=== PATIENT | female | born 1945 | race Caucasian/White ===

== ENCOUNTER 2021-10-14 20:28 | Emergency (ER) | payer MEDICARE ==
[~2021-10-14 20:28] MED LIST: ASPIRIN325 MG PO; ATENOLOL25 MG PO; COZAAR100 MG PO; LOPRESSOR25 MG PO; PEPCID20 MG PO; PREDNISONE 20MG20 MG PO; PREDNISONE10 MG PO; PROAIR HFA8.5 GM INH; VIBRAMYCIN100 MG PO; ZITHROMAX500 MG PO
[2021-10-14 22:51] LABS: BILIRUBIN NEGATIVE (NEGATIVE); BLOOD NEGATIVE Ery/uL (NEGATIVE); CLARITY CLEAR (CLEAR); COLOR YELLOW (YELLOW); GLUCOSE (U) NORMAL (NORMAL); LEUKOCYTES TRACE Leu/uL (NEGATIVE); NITRITE NEGATIVE (NEGATIVE); PROTEIN NEGATIVE (NEGATIVE); SPECIFIC GRAVITY <=1.005 (1.001-1.030); UROBILINOGEN 0.2 mg/dL (0.2-1.0)
[2021-10-14 22:51] LABS: EOSINOPHIL 8.4 % (0-7); HCT 36.6 % (37.0-47.0); HGB 12.9 g/dl (12.5-16.0); LYMPHOCYTE 10.9 % (15-48); MCH 33.1 pg (25.0-31.0); MCHC 35.2 g/dL (32.0-36.0); MCV 93.8 fL (78.0-100.0); MONOCYTE 18.6 % (0-12); MPV 10.2 fL (6.0-9.5); NEUTROPHIL 60.7 % (41-80); NRBC 0; PLT 170 K/uL (150-400); RDW 13.2 % (11.5-14.0); WBC 4.8 K/uL (4.0-10.5)
[2021-10-14 22:59] LABS: BACTERIA TRACE; SQUAMOUS EPITHELIAL CELLS RARE; URINARY RBC RARE
[2021-10-14 23:09] LABS: ALBUMIN 4.2 g/dL (3.4-5.0); BILIRUBIN - TOTAL 0.5 mg/dL (0.2-1.0); CREATININE 0.8 mg/dL (0.51-0.95); GLOBULIN (CALCULATION) 3.3 g/dL; POTASSIUM 3.5 mmol/L (3.5-5.1); TOTAL PROTEIN 7.5 g/dL (6.4-8.2)
[2021-10-14 23:13] LABS: LACTIC ACID 0.6 mmol/L (0.4-1.9)
[2021-10-14 23:24] LABS: INFLUENZA A NAA NEGATIVE (NEGATIVE)
[2021-10-14 23:26] LABS: CORONAVIRUS 2019 SARS-COV-2 POSITIVE (NEGATIVE)
[2021-10-14] MEDS ORDERED: ONDANSETRON ODT4 MG PO (23:31)
[2021-10-14] MEDS ORDERED: PAXLOVID 300-11 EACH PO (23:31)
[2021-10-14] MEDS ORDERED: ZPAK PO (23:31)
[2021-10-15] MEDS ORDERED: AMOX TR-K CLV1 EAC4 PO (21:09)
== END 2021-10-14 23:45 | disposition home or self-care (01) ==
LOC: FER 20:28
PROVIDERS: Physician Assistant
DX: U07.1 COVID-19 (principal); J44.9 Chronic obstructive pulmonary disease, unspecified; I10 Essential (primary) hypertension; Z79.899 Other long term (current) drug therapy; Z87.891 Personal history of nicotine dependence
CPT/HCPCS: 36415; 80053; 81001; 83605; 84484; 85025; 87088; 93005; J2405; U0002

== ENCOUNTER 2021-10-15 16:57 | Emergency (ER) | payer MEDICARE ==
[~2021-10-15 16:57] MED LIST changes: +ONDANSETRON ODT4 MG PO; +PAXLOVID 300-11 EACH PO; +ZPAK PO
[2021-10-15 18:55] LABS: BASOPHIL 0.5 % (0-2); EOSINOPHIL 0.2 % (0-7); HCT 40.5 % (37.0-47.0); HGB 13.8 g/dl (12.5-16.0); LYMPHOCYTE 6.8 % (15-48); MCH 32.8 pg (25.0-31.0); MCHC 34.1 g/dL (32.0-36.0); MCV 96.2 fL (78.0-100.0); MONOCYTE 9.2 % (0-12); MPV 10.2 fL (6.0-9.5); NRBC 0; PLT 151 K/uL (150-400); RBC 4.21 M/uL (4.20-5.40); RDW 13.4 % (11.5-14.0); WBC 6.6 K/uL (4.0-10.5)
[2021-10-15 19:32] LABS: BUN/CREAT RATIO (CALC) 9.4 RATIO; CREATININE 1.06 mg/dL (0.51-0.95); POTASSIUM 3.6 mmol/L (3.5-5.1)
[2021-10-15] MEDS ORDERED: AMOX TR-K CLV1 EAC4 PO (21:09)
== END 2021-10-15 21:22 | disposition home or self-care (01) ==
LOC: FER 16:57
PROVIDERS: Physician Assistant
DX: K52.9 Noninfective gastroenteritis and colitis, unspecified (principal); U07.1 COVID-19; I10 Essential (primary) hypertension; Z79.899 Other long term (current) drug therapy
CPT/HCPCS: 36415; 80048; 85025; J7030; J7040